=== PATIENT | female | born 1965 | race Caucasian/White ===

== ENCOUNTER 2016-12-09 02:58 | Inpatient (IN) | payer OTHER ==
[2016-12-09] VITALS (7 sets, daily range): BP systolic 100–176; BP diastolic 7–111
[~2016-12-09] VITALS: Ht 162.6 cm; Wt 56.4 kg
[2016-12-09 03:27] LABS: BASOPHIL % 2.3 % (0-2); PLATELET COUNT 397 x10^3mcL (130-400); RED CELL DISTRIBUTION WIDTH 11.8 % (11.5-14.5)
[2016-12-09 03:36] LABS: ALBUMIN 4.3 g/dL (3.4-5.0); ALKALINE PHOSPHATASE 124 U/L (46-116); ALT/SGPT 34 U/L (14-59); AST/SGOT 30 U/L (15-37); BILIRUBIN TOTAL 0.5 mg/dL (0.20-1.00); CALCIUM 9.7 mg/dL (8.5-10.1); CARBON DIOXIDE 25.7 mmol/L (21-32); CHLORIDE SERUM 99 mmol/L (98-107); CREATININE SERUM 1.1 mg/dL (0.6-1.0); GFR1 56 mL/min; GLUCOSE SERUM 191 mg/dL (74-106); SODIUM SERUM 136 mmol/L (136-145)
[2016-12-09 03:39] LABS: POTASSIUM SERUM 2.9 mmol/L (3.5-5.1)
[2016-12-09 04:11] LABS: AMPHETAMINE QUAL UR NONE DETECTED (NEG <=1000)
[2016-12-09] MEDS ORDERED: LISINOPRIL40 MG PO (06:19)
[2016-12-09] MEDS ORDERED: CLONIDINE HYDR0.3 M1 PO (06:20)
[2016-12-09] MEDS ORDERED: NOR10 PO (06:20)
[2016-12-09 06:44] LABS: microscopic required? YES; urine erythrocyte 3+ (NEGATIVE)
[2016-12-09 06:47] LABS: T3 TOTAL 1.1 ng/mL
[2016-12-09 07:33] LABS: FREE T4 1.14 ng/dL (0.76-1.46); FREE THYROXINE INDEX 3.7 ug/dL (1.4-4.5); T4(THYROXINE) 10.2 ug/dL (4.7-13.3)
[2016-12-09 08:12] LABS: CHOLESTEROL/HDL RATIO 4.1; MAGNESIUM 1.8 mg/dL (1.8-2.4)
[2016-12-10 06:19] VITALS: BP 133/94
[2016-12-10 06:36] LABS: BASOPHIL % 0.3 % (0-2); PLATELET COUNT 311 x10^3mcL (130-400); RED CELL DISTRIBUTION WIDTH 12.7 % (11.5-14.5)
[2016-12-10 06:53] LABS: CALCIUM 8.4 mg/dL (8.5-10.1); CARBON DIOXIDE 25.8 mmol/L (21-32); CHLORIDE SERUM 107 mmol/L (98-107); CREATININE SERUM 0.7 mg/dL (0.6-1.0); GFR1 > 60 mL/min; GLUCOSE SERUM 117 mg/dL (74-106); POTASSIUM SERUM 4.4 mmol/L (3.5-5.1); SODIUM SERUM 142 mmol/L (136-145)
[2016-12-10 10:00] VITALS: BP 152/98
[2016-12-10 14:00] VITALS: BP 109/43; BP 80/52
[2016-12-10 18:00] VITALS: BP 92/57
[2016-12-10 18:01] VITALS: BP 123/60
[2016-12-10 22:07] VITALS: BP 120/75
[2016-12-11 06:19] LABS: CALCIUM 8.1 mg/dL (8.5-10.1); CARBON DIOXIDE 26.8 mmol/L (21-32); CHLORIDE SERUM 108 mmol/L (98-107); CREATININE SERUM 0.5 mg/dL (0.6-1.0); GFR1 > 60 mL/min; GLUCOSE SERUM 93 mg/dL (74-106); PHOSPHOROUS 3.1 mg/dL (2.5-4.9); SODIUM SERUM 142 mmol/L (136-145)
[2016-12-11 06:22] LABS: BASOPHIL % 0.3 % (0-2); PLATELET COUNT 225 x10^3mcL (130-400); RED CELL DISTRIBUTION WIDTH 12.4 % (11.5-14.5)
[2016-12-11 06:33] VITALS: BP 100/66
[2016-12-11 13:52] VITALS: BP 95/62
[2016-12-11] MEDS ORDERED: LEVAQUIN250 M1 PO (14:34)
[2016-12-11] MEDS ORDERED: LEVOTHYROXIN0.025 M2 PO (14:39)
[2016-12-11] MEDS ORDERED: LIPI20 PO (14:43)
[2016-12-11] MEDS ORDERED: LAC PO (14:43)
== END 2016-12-11 16:40 | disposition home or self-care (01) | DRG 720 ==
LOC: ED 02:58 → DU 05:51
PROVIDERS: Emergency Medicine; ADMIT Family Medicine
DX: A41.9 Sepsis, unspecified organism (principal); N17.0 Acute kidney failure with tubular necrosis; G93.41 Metabolic encephalopathy; I10 Essential (primary) hypertension; E03.9 Hypothyroidism, unspecified; G90.9 Disorder of the autonomic nervous system, unspecified; E87.6 Hypokalemia; E78.5 Hyperlipidemia, unspecified; N39.0 Urinary tract infection, site not specified; G93.0 Cerebral cysts; L72.0 Epidermal cyst; R31.9 Hematuria, unspecified
CPT/HCPCS: 83880; 84439; 97110-GP; 97116-GP; G0480; J0696; J2405; J2765; J3480; J7030; Q0092

== ENCOUNTER 2017-06-12 16:20 | Emergency (ER) | payer OTHER ==
[~2017-06-12] VITALS: Ht 160 cm; Wt 54.4 kg
[~2017-06-12 16:20] MED LIST: CLONIDINE HYDR0.3 M1 PO; LAC PO; LEVAQUIN250 M1 PO; LEVOTHYROXIN0.025 M2 PO; LIPI20 PO; LISINOPRIL40 MG PO; NOR10 PO
[2017-06-12 16:32] VITALS: Ht 160 cm; Wt 54.4 kg
[2017-06-12 17:43] LABS: microscopic required? YES; urine erythrocyte TRACE (NEGATIVE)
[2017-06-12 17:47] LABS: AMPHETAMINE QUAL UR NONE DETECTED (NEG <=1000)
[2017-06-12 17:48] LABS: BASOPHIL % 0.3 % (0-2); PLATELET COUNT 341 x10^3mcL (130-400); RED CELL DISTRIBUTION WIDTH 12.5 % (11.5-14.5)
[2017-06-12 17:58] LABS: CALCIUM 8.9 mg/dL (8.5-10.1); CARBON DIOXIDE 26.1 mmol/L (21-32); CHLORIDE SERUM 103 mmol/L (98-107); CREATININE SERUM 0.8 mg/dL (0.6-1.0); GFR1 > 60 mL/min; GLUCOSE SERUM 119 mg/dL (74-106); POTASSIUM SERUM 3.6 mmol/L (3.5-5.1); SODIUM SERUM 141 mmol/L (136-145)
[2017-06-12 18:06] LABS: ALKALINE PHOSPHATASE 91 U/L (46-116); ALT/SGPT 31 U/L (14-59); AST/SGOT 20 U/L (15-37); BILIRUBIN TOTAL 0.2 mg/dL (0.20-1.00); LIPASE 94 IU/L (73-393); TOTAL PROTEIN, SERUM 8.1 g/dL (6.4-8.2)
[2017-06-12 19:17] VITALS: BP 114/74
== END 2017-06-12 19:17 | disposition home or self-care (01) ==
LOC: ED 16:20
PROVIDERS: Emergency Medicine
DX: R10.12 Left upper quadrant pain (principal); R55 Syncope and collapse; R11.2 Nausea with vomiting, unspecified; I10 Essential (primary) hypertension
CPT/HCPCS: J2405

== ENCOUNTER 2019-06-22 13:52 | Emergency (ER) | payer OTHER ==
[~2019-06-22] VITALS: Ht 162.6 cm; Wt 59.0 kg
[2019-06-22 13:53] VITALS: Ht 162.6 cm; Wt 59.0 kg
[2019-06-22 14:18] LABS: BASOPHIL % 0.6 % (0-2); PLATELET COUNT 311 x10^3mcL (130-400); RED CELL DISTRIBUTION WIDTH 12.1 % (11.5-14.5)
[2019-06-22 14:35] LABS: CALCIUM 9.5 mg/dL (8.5-10.1); CHLORIDE SERUM 103 mmol/L (98-107); CREATININE SERUM 0.7 mg/dL (0.6-1.0); GFR1 > 60 mL/min; GLUCOSE SERUM 105 mg/dL (74-106); SODIUM SERUM 141 mmol/L (136-145)
[2019-06-22 14:39] LABS: ALKALINE PHOSPHATASE 96 U/L (46-116); ALT/SGPT 30 U/L (14-59); AST/SGOT 17 U/L (15-37); BILIRUBIN TOTAL 0.5 mg/dL (0.20-1.00); CHOLESTEROL 197 mg/dL (<200)
[2019-06-22 14:41] LABS: TOTAL PROTEIN, SERUM 8.3 g/dL (6.4-8.2)
[2019-06-22 14:48] LABS: T3 TOTAL 1.44 ng/mL
[2019-06-22 14:58] LABS: FREE T4 1.12 ng/dL (0.76-1.46); FREE THYROXINE INDEX 3.4 ug/dL (1.4-4.5); T4(THYROXINE) 10.4 ug/dL (4.7-13.3)
[2019-06-22 18:07] VITALS: BP 96/68
== END 2019-06-22 18:07 | disposition short-term general hospital (02) ==
LOC: ED 13:52
PROVIDERS: Emergency Medicine
DX: R41.82 Altered mental status, unspecified (principal); G93.9 Disorder of brain, unspecified; R56.9 Unspecified convulsions
CPT/HCPCS: 36415; 84439; G0480; Q0092

== ENCOUNTER 2019-10-26 14:04 | Emergency (ER) | payer OTHER ==
[~2019-10-26] VITALS: Ht 154.9 cm; Wt 54.4 kg
[2019-10-26 14:25] VITALS: Ht 154.9 cm; Wt 54.4 kg
[2019-10-26 15:21] LABS: BASOPHIL % 0.3 % (0-2); PLATELET COUNT 363 x10^3mcL (130-400); RED CELL DISTRIBUTION WIDTH 12.2 % (11.5-14.5)
[2019-10-26 15:53] LABS: CALCIUM 9.4 mg/dL (8.5-10.1); CARBON DIOXIDE 27.7 mmol/L (21-32); CREATININE SERUM 1.2 mg/dL (0.6-1.0); POTASSIUM SERUM 4.7 mmol/L (3.5-5.1)
[2019-10-26 15:58] LABS: ALBUMIN 3.9 g/dL (3.4-5.0); BILIRUBIN TOTAL 0.3 mg/dL (0.20-1.00); TOTAL PROTEIN, SERUM 8.1 g/dL (6.4-8.2)
[2019-10-26 16:42] VITALS: BP 110/69
== END 2019-10-26 16:42 | disposition home or self-care (01) ==
LOC: ED 14:04
PROVIDERS: Emergency Medicine
DX: G40.909 Epilepsy, unspecified, not intractable, without status epilepticus (principal); R41.82 Altered mental status, unspecified; I10 Essential (primary) hypertension

== ENCOUNTER 2019-12-16 15:29 | Emergency (ER) | payer OTHER ==
[~2019-12-16] VITALS: Ht 160 cm; Wt 59.0 kg
[2019-12-16 15:38] VITALS: Ht 160 cm; Wt 59.0 kg
[2019-12-16 17:11] LABS: microscopic required? NO
[2019-12-16 17:48] LABS: BASOPHIL % 0.4 % (0-2); PLATELET COUNT 310 x10^3mcL (130-400); RED CELL DISTRIBUTION WIDTH 12.6 % (11.5-14.5)
[2019-12-16 17:58] LABS: urine erythrocyte NEGATIVE (NEGATIVE)
[2019-12-16 18:07] LABS: CALCIUM 9.2 mg/dL (8.5-10.1); CARBON DIOXIDE 31.7 mmol/L (21-32); CHLORIDE SERUM 102 mmol/L (98-107); CREATININE SERUM 0.6 mg/dL (0.6-1.0); GFR1 > 60 mL/min; GLUCOSE SERUM 99 mg/dL (74-106); SODIUM SERUM 140 mmol/L (136-145)
[2019-12-16 18:12] LABS: ALBUMIN 3.9 g/dL (3.4-5.0); ALKALINE PHOSPHATASE 86 U/L (46-116); ALT/SGPT 51 U/L (14-59); AST/SGOT 32 U/L (15-37); BILIRUBIN TOTAL 0.2 mg/dL (0.20-1.00); TOTAL PROTEIN, SERUM 7.8 g/dL (6.4-8.2)
[2019-12-16 18:18] LABS: AMPHETAMINE QUAL UR NONE DETECTED (See below)
[2019-12-16 19:11] VITALS: BP 115/70
== END 2019-12-16 19:11 | disposition home or self-care (01) ==
LOC: ED 15:29
PROVIDERS: Emergency Medicine
DX: G40.909 Epilepsy, unspecified, not intractable, without status epilepticus (principal); I10 Essential (primary) hypertension

== ENCOUNTER 2019-12-22 09:53 | Emergency (ER) | payer OTHER ==
[~2019-12-22] VITALS: Ht 157.5 cm; Wt 81.6 kg
[2019-12-22 09:57] VITALS: Ht 157.5 cm; Wt 81.6 kg
[2019-12-22] MEDS ORDERED: SIMVASTATIN80 M1 PO (10:30)
[2019-12-22] MEDS ORDERED: OXCARBAZEPINE300 M1 PO (10:31)
[2019-12-22 10:52] LABS: BASOPHIL % 0.4 % (0-2); PLATELET COUNT 339 x10^3mcL (130-400); RED CELL DISTRIBUTION WIDTH 12.6 % (11.5-14.5)
[2019-12-22 11:00] LABS: CALCIUM 9.3 mg/dL (8.5-10.1); CARBON DIOXIDE 34.3 mmol/L (21-32); CHLORIDE SERUM 104 mmol/L (98-107); CREATININE SERUM 0.7 mg/dL (0.6-1.0); GFR1 > 60 mL/min; GLUCOSE SERUM 110 mg/dL (74-106); POTASSIUM SERUM 3.6 mmol/L (3.5-5.1); SODIUM SERUM 142 mmol/L (136-145)
[2019-12-22 11:06] LABS: ALBUMIN 4.4 g/dL (3.4-5.0); ALKALINE PHOSPHATASE 96 U/L (46-116); ALT/SGPT 71 U/L (14-59); AST/SGOT 39 U/L (15-37); BILIRUBIN TOTAL 0.3 mg/dL (0.20-1.00); CHOLESTEROL 162 mg/dL (<200); CHOLESTEROL/HDL RATIO 2.9; HDL CHOLESTEROL 56 mg/dL (40-60); LIPASE 83 IU/L (73-393); TOTAL PROTEIN, SERUM 8.6 g/dL (6.4-8.2); TRIGLYCERIDES 103 mg/dL (<150)
[2019-12-22 11:15] LABS: FREE T4 0.86 ng/dL (0.76-1.46); FREE THYROXINE INDEX 2.6 ug/dL (1.4-4.5); T4(THYROXINE) 8.9 ug/dL (4.7-13.3)
[2019-12-22 11:26] LABS: UA SPECIFIC GRAVITY <=1.005 (1.005-1.035); microscopic required? YES; urine erythrocyte TRACE (NEGATIVE)
[2019-12-22 11:46] LABS: T3 TOTAL 1.29 ng/mL
[2019-12-22 13:42] VITALS: BP 154/94
== END 2019-12-22 13:45 | disposition home or self-care (01) ==
LOC: ED 09:53
PROVIDERS: Specialist
DX: G40.909 Epilepsy, unspecified, not intractable, without status epilepticus (principal); I10 Essential (primary) hypertension
CPT/HCPCS: 83880; 84439; J3490; J7030; Q0092